=== PATIENT | female | born 1995 | race African-American/Black ===

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

== ENCOUNTER 2017-10-16 18:52 | Emergency (ER) | payer OTHER ==
[2017-10-16 19:04] VITALS: BP 129/55; PULSE 62; TEMP 98.2; BMI 29.2
--- NOTE | 2017-10-16 19:05 | PDOC ---
Rapid Medical Evaluation Chief Complaint: Pain Time Seen by Provider: 10/16/17 19:03 Medical Evaluation: Allergies Allergy/AdvReac Type Severity Reaction Status Date / Time No Known Allergies Allergy Verified 12/24/16 10:07 10/16/17 19:03 I have performed a brief in-person evaluation of this patient. The patient presents with a chief complaint of: cramping x 1 day, no control, currently menstruating Pertinent physical exam findings: uncomfortable appearing I have ordered the following: ua, ucx, upreg The patient will proceed to the ED for further evaluation. Discharge Disposition - Diagnosis Abdominal cramping - Referrals - Patient Instructions - Post Discharge Activity
[2017-10-16] MEDS ORDERED: KETOROLAC TROMETHAMINE 30 MG/1 ML VIAL IM ONE (20:07)
--- NOTE | 2017-10-16 20:14 | PDOC ---
History of Present Illness - General Chief Complaint: Pain Stated Complaint: Menstrual pain Time Seen by Provider: 10/16/17 19:03 History Source: Patient - History of Present Illness Timing/Duration: reports: constant Abdominal Pain Onset Location: reports: generalized abdomen Past History - Past Medical History Allergies/Adverse Reactions: Allergies Allergy/AdvReac Type Severity Reaction Status Date / Time No Known Allergies Allergy Verified 10/16/17 19:04 Home Medications: Ambulatory Orders NK [No Known Home Medication] 12/24/16 COPD: No Disorders: Yes (R ovarian cysts) - Suicide/Smoking/Psychosocial Hx Smoking History: Never smoked Have you smoked in the past 12 months: No Information on smoking cessation initiated: No Hx Alcohol Use: No Drug/Substance Use Hx: No Substance Use Type: None Review of Systems - Review of Systems Constitutional: No: Chills, Fever ABD/GI: Yes: Nausea, Abdominal cramping : No: Dysuria *Physical Exam - Vital Signs Last Vital Signs Temp Pulse Resp BP Pulse Ox 98.2 F 62 19 129/55 98 10/16/17 19:02 10/16/17 19:02 10/16/17 19:02 10/16/17 19:02 10/16/17 19:02 - Physical Exam General Appearance: Yes: Appropriately Dressed. No: Apparent Distress HEENT: positive: Normal Voice Neck: positive: Supple Respiratory/Chest: negative: Respiratory Distress Gastrointestinal/Abdominal: positive: Soft. negative: Tender Integumentary: positive: Dry, Warm Neurologic: positive: Fully Oriented, Alert, Normal Mood/Affect Medical Decision Making - Medical Decision Making 10/16/17 20:09 22-year-old female, history of chlamydia in eighth grade, possible ovarian cyst , dysmenorrhea, here with abdominal cramping in the setting of menses which started today. Patient states pain consistent with her usual dysmenorrhea. Also has intermittent nausea and dizziness which she usually has at onset of menses. Taking Tylenol with no relief. No abnormal vaginal discharge, nausea, vomiting, fever or chills. Of note, patient had ultrasound last year at [facility] which did not show any cysts or fibroids. See exam Dysmenorrhea Preg and ua neg -toradol in ED -dc w/ otc meds and care companion f/u 10/16/17 20:46 Pain better w/ meds, upreg neg, ua w/ no e/o infxn. Stable for dc w/ motrin prn and care companion f/u 10/16/17 20:47 *DC/Admit/Observation/Transfer Diagnosis at time of Disposition: Dysmenorrhea - Discharge Dispostion Disposition: HOME Condition at time of disposition: Improved - Referrals Referrals: Sandie Rasmussen MD [Primary Care Provider] - - Patient Instructions Printed Discharge Instructions: DI for Dysmenorrhea Additional Instructions: Take 800 mg of Motrin every 6 hours for pain. Please take medication with food to prevent gastritis. Please follow-up with your TIMBER CUTTER in 1-2 weeks - Post Discharge Activity
[2017-10-16] MEDS ORDERED: KETOROLAC TROMETHAMINE 30 MG/1 ML VIAL ONE (20:16)
[2017-10-16 20:33] LABS: URINE APPEARANCE SLCLOUDY; URINE BILIRUBIN NEGATIVE (<2.0 mg/dL); URINE BLOOD 3+ (NEGATIVE); URINE COLOR DKYELLOW; URINE GLUCOSE (UA) NEGATIVE (NEGATIVE); URINE KETONE 2+ (NEGATIVE); URINE LEUK ESTERASE NEGATIVE (NEGATIVE); URINE NITRITE NEGATIVE (NEGATIVE); URINE UROBILINOGEN NEGATIVE mg/dL (0.2-1.0)
[2017-10-16 20:36] LABS: URINE PROTEIN 2+ (NEGATIVE)
[2017-10-16 20:38] LABS: EPI CELLS RARE /HPF (FEW); URINE BACTERIA FEW /hpf (NONE SEEN); URINE MUCUS MANY
[2017-10-16 20:40] LABS: HCG,QUALITATIVE URINE NEGATIVE
== END 2017-10-16 20:56 | disposition home or self-care (01) ==
LOC: JERFT 18:52
PROC: 3E0233Z Introduction of Anti-inflammatory into Muscle, Percutaneous Approach (ICD-10-PCS; principal; 2017-10-16)
DX: N94.6 Dysmenorrhea, unspecified (principal); N83.201 Unspecified ovarian cyst, right side
CPT/HCPCS: 81003; 81015; 84703; 87086; 96372; 99281-25

== ENCOUNTER 2018-09-11 08:18 | Emergency (ER) | payer OTHER ==
[2018-09-11 08:31] VITALS: TEMP 97.7; BMI 28.1
[2018-09-11] MEDS ORDERED: morphine CARPU-JECT 4 MG/1 ML DISP.SYRIN IVPUSH ONE (08:57)
[2018-09-11] MEDS ORDERED: SODIUM CHLORIDE 1,000 ML IV STA (08:57)
[2018-09-11] MEDS ORDERED: ONDANSETRON 4 MG/2 ML VIAL IVPUSH ONE (08:57)
--- NOTE | 2018-09-11 08:57 | PDOC ---
History of Present Illness - General History Source: Patient Exam Limitations: No Limitations - History of Present Illness Initial Comments: 09/11/18 09:41 The patient is a 22 year old female with a past medical history of endometriosis here today for evaluation of abdominal pain. The patient reports that she usually has dysmenorrhea on the first and second day of her period and that her period started last yesterday. Patient has been seen by her OB but refuses treatment due to concerns about fertility. Patient denies headache, lightheadedness. Denies fever, chills. Denies chest pain, shortness of breath. Denies nausea, vomiting, diarrhea. Allergies: NKA <Nrei Mcnally - Last Filed: 09/11/18 09:40> <Dinora Arias - Last Filed: 09/11/18 15:29> - General Chief Complaint: Pain Stated Complaint: CRAMPS Time Seen by Provider: 09/11/18 08:57 Past History <Neri Mcnally - Last Filed: 09/11/18 09:40> - Past Medical History COPD: No Disorders: Yes (R ovarian cysts) - Suicide/Smoking/Psychosocial Hx Smoking History: Unknown if ever smoked Have you smoked in the past 12 months: No Hx Alcohol Use: No Drug/Substance Use Hx: No Substance Use Type: None <Dinora Arias - Last Filed: 09/11/18 15:29> - Past Medical History Allergies/Adverse Reactions: Allergies Allergy/AdvReac Type Severity Reaction Status Date / Time morphine Allergy Verified 09/11/18 13:29 shellfish derived Allergy Verified 09/11/18 13:30 Home Medications: Ambulatory Orders Loratadine [Claritin] 10 mg PO BID PRN #20 tablet 09/11/18 Methylprednisolone [Medrol Dose Chip] 4 mg PO ASDIR #21 tablet 09/11/18 Ranitidine [Zantac -] 150 mg PO DAILY #7 tablet 09/11/18 Review of Systems - Review of Systems Able to Perform ROS?: Yes Comments:: 09/11/18 09:41 GENERAL/CONSTITUTIONAL: No fever or chills. No weakness. HEAD, EYES, EARS, NOSE AND THROAT: No change in vision. No ear pain or discharge. No sore throat. CARDIOVASCULAR: No chest pain or shortness of breath. RESPIRATORY: No cough, wheezing, or hemoptysis. GASTROINTESTINAL: +lower abdominal pain. No nausea, vomiting, diarrhea or constipation. GENITOURINARY: No dysuria, frequency, or change in urination. MUSCULOSKELETAL: No joint or muscle swelling or pain. No neck or back pain. SKIN: No rash NEUROLOGIC: No headache, vertigo, loss of consciousness, or change in strength/ sensation. ENDOCRINE: No increased thirst. No abnormal weight change. HEMATOLOGIC/LYMPHATIC: No anemia, easy bleeding, or history of blood clots. ALLERGIC/IMMUNOLOGIC: No hives or skin allergy. <Neri Mcnally - Last Filed: 09/11/18 09:40> *Physical Exam - Vital Signs Last Vital Signs Temp Pulse Resp BP Pulse Ox 97.7 F 55 L 22 H 96/66 99 09/11/18 08:30 09/11/18 08:30 09/11/18 08:30 09/11/18 08:30 09/11/18 08:30 - Physical Exam Comments: 09/11/18 09:41 GENERAL: The patient is in no acute distress. HEAD: Normal with no signs of trauma. EYES: PERRLA, EOMI, sclera anicteric, conjunctiva clear. ENT: Ears normal, nares patent, oropharynx clear without exudates. Moist mucous membranes. NECK: Normal range of motion, supple without lymphadenopathy, JVD, or masses. LUNGS: Breath sounds equal, clear to auscultation bilaterally. No wheezes, and no crackles. HEART:Regular rate and rhythm, normal S1 and S2 without murmur, rub or gallop. ABDOMEN: Soft, nontender, normoactive bowel sounds. No guarding, no rebound. No masses palpable. EXTREMITIES: Normal range of motion, no edema. No clubbing or cyanosis. No erythema, or tenderness. NEUROLOGICAL: Cranial nerves II through XII grossly intact. Normal speech. No focal neurological deficits. MUSCULOSKELETAL: Back non-tender to palpation, no CVA tenderness SKIN: Warm, Dry, normal turgor, no rashes or lesions noted. <Neri Mcnally - Last Filed: 09/11/18 09:40> - Vital Signs Last Vital Signs Temp Pulse Resp BP Pulse Ox 97.7 F 55 L 22 H 96/66 99 09/11/18 08:30 09/11/18 08:30 09/11/18 08:30 09/11/18 08:30 09/11/18 08:30 <Dinora Arias - Last Filed: 09/11/18 15:29> Moderate Sedation - Procedure Monitoring Vital Signs: Procedure Monitoring Vital Signs Temperature 97.7 F 09/11/18 08:30 Pulse Rate 55 L 09/11/18 08:30 Respiratory Rate 22 H 09/11/18 08:30 Blood Pressure 96/66 09/11/18 08:30 O2 Sat by Pulse Oximetry (%) 99 09/11/18 08:30 <Neri Mcnally - Last Filed: 09/11/18 09:40> - Procedure Monitoring Vital Signs: Procedure Monitoring Vital Signs Temperature 97.7 F 09/11/18 08:30 Pulse Rate 55 L 09/11/18 08:30 Respiratory Rate 22 H 09/11/18 08:30 Blood Pressure 96/66 09/11/18 08:30 O2 Sat by Pulse Oximetry (%) 99 09/11/18 08:30 <Dinora Arias - Last Filed: 09/11/18 15:29> ED Treatment Course - LABORATORY CBC & Chemistry Diagram: 09/11/18 10:27 09/11/18 10:27 <Dinora Arias - Last Filed: 09/11/18 15:29> Medical Decision Making - Medical Decision Making 09/11/18 09:02 Ms Hernandez is a 22 yo F who presents with abdominal pain Pt reports that she has a h/o dysmenorrhea on the 1st and 2nd days of her period She has previously been seen by her field artillery crewmember who told her that she should be started on OCPs Pt refused this because she is concerned about her future fertility Pt states she is usually in pain on the 1st and 2nd day of her period It started last night Will do: Labs IVF Zofran, Morphine TVUS 09/11/18 11:20 Laboratory Tests 09/11/18 09/11/18 10:27 10:27 WBC 5.0 Hgb 12.9 Hct 37.4 Plt Count 207 Serum , Qual Negative 09/11/18 11:20 US pending Pt states she feels better 09/11/18 13:19 Pt received Morphine 4 Pt developed reaction (urticaria on left middle nuckle and right hand) No wheezing No nausea or vomiting No uvula edema Benadryl given Solumedro 09/11/18 14:52 Pt re assessed Pt states she feels better Will discharge to home Will give treatment for allergic reaction Pt can only take nsaids for her abdominal pain <Dinora Arias - Last Filed: 09/11/18 15:29> *DC/Admit/Observation/Transfer - Attestations Scribe Attestion: 09/11/18 09:41 Documentation prepared by PHILL Ryan, acting as clinical medical transcriptionist for Dinora Arias MD. <Neri Mcnally - Last Filed: 09/11/18 09:40> - Discharge Dispostion Decision to Admit order: No <Dinora Arias - Last Filed: 09/11/18 15:29> Diagnosis at time of Disposition: Dysmenorrhea, Endometriosis - Discharge Dispostion Disposition: HOME Condition at time of disposition: Stable - Prescriptions Prescriptions: Loratadine [Claritin] 10 mg PO BID PRN #20 tablet PRN Reason: allergic reaction Methylprednisolone [Medrol Dose Chip] 4 mg PO ASDIR #21 tablet Ranitidine [Zantac -] 150 mg PO DAILY #7 tablet - Referrals Referrals: Yfn Pastrana MD [Primary Care Provider] - - Patient Instructions Printed Discharge Instructions: Dysmenorrhea (Alternative Therapy), Painful Menstrual Periods, DI for Dysmenorrhea Additional Instructions: You MUST follow up with your field artillery crewmember Consider Oral contraceptives for treatment Please take Motrin or Pamprin for cramps (start taking this as soon as you start to have cramps) Please return to the ER for any other concerns or complaints - Post Discharge Activity Forms/Work/School Notes: Back to Work
[2018-09-11] MEDS ORDERED: ONDANSETRON 4 MG/2 ML VIAL ONE (10:13)
[2018-09-11] MEDS ORDERED: morphine SULFATE 4 MG/ML VIAL ONE (10:13)
[2018-09-11 10:42] LABS: BASO % 0.5 % (0-2.0); EOS % 0.2 % (0-4.5); HEMATOCRIT 37.4 % (32.4-45.2); HEMOGLOBIN 12.9 GM/dL (10.7-15.3); MCH 32.6 pg (25.7-33.7); MCHC 34.6 g/dl (32.0-36.0); MEAN CELL VOLUME 94.3 fl (80-96); MEAN PLT VOLUME 10.1 fl (7.5-11.1); MONO % 3.6 % (3.8-10.2); NEUT % 84.7 % (42.8-82.8); PLATELET COUNT 207 K/MM3 (134-434); RBC 3.96 M/mm3 (3.60-5.2); RDW 13.6 % (11.6-15.6)
[2018-09-11] MEDS ORDERED: methylPREDNISolone NA SUCC 125 MG/2 ML VIAL IVPUSH ONE (13:20)
[2018-09-11] MEDS ORDERED: FAMOTIDINE 20 MG/50 ML IVPB 20 MG/50 ML MG IVPB ONE ×2 (13:21→13:35)
[2018-09-11] MEDS ORDERED: methylPREDNISolone NA SUCC 125 MG/2 ML VIAL ONE (13:35)
[2018-09-11 15:35] VITALS: BP 103/46; PULSE 52
[2018-09-11 16:08] LABS: ALBUMIN 4.3 g/dl (3.4-5.0); ALK PHOS 76 U/L (45-117); ANION GAP 8 MMOL/L (8-16); BILIRUBIN,TOTAL 0.6 mg/dL (0.2-1); BLOOD UREA NITROGEN 10 mg/dL (7-18); CALCIUM 8.9 mg/dL (8.5-10.1); CHLORIDE 110 mmol/L (98-107); CO2 23 mmol/L (21-32); CREATININE 0.7 mg/dL (0.55-1.3); GLUCOSE,RANDOM 103 mg/dL (74-106); POTASSIUM 3.7 mmol/L (3.5-5.1); SGOT/AST 11 U/L (15-37); SGPT/ALT 22 U/L (13-61); SODIUM 140 mmol/L (136-145); TOT PROT 7.2 g/dl (6.4-8.2)
== END 2018-09-11 15:34 | disposition home or self-care (01) ==
LOC: JER 08:18
PROC: 3E033GC Introduction of Other Therapeutic Substance into Peripheral Vein, Percutaneous Approach (ICD-10-PCS; principal; 2018-09-11)
PROC: 3E033NZ Introduction of Analgesics, Hypnotics, Sedatives into Peripheral Vein, Percutaneous Approach (ICD-10-PCS; 2018-09-11)
PROC: 3E033GC Introduction of Other Therapeutic Substance into Peripheral Vein, Percutaneous Approach (ICD-10-PCS; 2018-09-11)
PROC: 3E0337Z Introduction of Electrolytic and Water Balance Substance into Peripheral Vein, Percutaneous Approach (ICD-10-PCS; 2018-09-11)
DX: N94.6 Dysmenorrhea, unspecified (principal); N80.9 Endometriosis, unspecified
CPT/HCPCS: 36415; 76830-TC; 80053; 84703; 85025; 96361; 96365; 96375; 99285-25; J7030

== ENCOUNTER 2019-04-18 09:41 | Inpatient (IN) | payer OTHER ==
--- NOTE | 2019-04-18 10:54 | PDOC ---
History of Present Illness - General Chief Complaint: Pain Stated Complaint: ABDOMINAL PAIN Time Seen by Provider: 04/18/19 10:52 History Source: Patient Exam Limitations: No Limitations - History of Present Illness Initial Comments: 04/18/19 10:53 HPI: 23yo F with PMH endometriosis p/w diffuse abdominal pain for 3 days with associated nausea and vomiting. Pain is throbbing / soreness / stabbing and does not radiate. Reports pain is in lower abdomen but points to umbilicus / epigastrium. No radiation, gradually worsening intensity - unable to stand upright 2/2 pain. Pt reports that she usually has dysmenorrhea on the first and second day of her period. LMP was 04/08-04/14 then restarted 04/16-04/18. Pt has been seen by her OB but refuses treatment due to concerns about fertility. She denies ever being told she has a polyp, fibroid, or cyst. Denies Hx of STI. No urinary symptoms, no diarrhea or constipation. Endorses vomiting "all day yesterday" and three times today. Reports she would have an appetite if she wasn 't nauseous. Patient denies headache, lightheadedness, fever, chills, chest pain, shortness of breath. All: PCN > rash Meds: denies PMH: denies PSH: denies FHx: DM Past History - Travel Traveled outside of the country in the last 30 days: No Close contact w/someone who was outside of country & ill: No - Past Medical History Allergies/Adverse Reactions: Allergies Allergy/AdvReac Type Severity Reaction Status Date / Time morphine Allergy Verified 04/18/19 11:09 shellfish derived Allergy Verified 04/18/19 11:09 Home Medications: Ambulatory Orders Loratadine [Claritin] 10 mg PO BID PRN #20 tablet 09/11/18 Methylprednisolone [Medrol Dose Chip] 4 mg PO ASDIR #21 tablet 09/11/18 Ranitidine [Zantac -] 150 mg PO DAILY #7 tablet 09/11/18 COPD: No Disorders: Yes (R ovarian cysts) - Immunization History Immunization Up to Date: Yes - Psycho Social/Smoking Cessation Hx Smoking History: Unknown if ever smoked Have you smoked in the past 12 months: No Hx Alcohol Use: No Drug/Substance Use Hx: No Substance Use Type: None Review of Systems - Review of Systems Able to Perform ROS?: Yes Is the patient limited Korean proficient: Yes Constitutional: No: Chills, Diaphoresis, Fever, Night Sweats, Weakness HEENTM: No: Blurred Vision, Double Vision, Nose Congestion, Tinnitus, Throat Pain Respiratory: No: Cough, Orthopnea, Shortness of Breath, Wheezing Cardiac (ROS): No: Chest Pain, Edema, Irregular Heart Rate, Palpitations, Syncope, Chest Tightness ABD/GI: Yes: Nausea, Vomiting. No: Abdominal Distended, Constipated, Diarrhea : No: Burning, Dysuria, Discharge, Frequency, Pain Musculoskeletal: No: Back Pain, Joint Pain, Neck Pain Integumentary: No: Bruising, Pruritus, Rash Neurological: No: Headache, Numbness, Tingling, Weakness Psychiatric: No: Stressors, Emotional Problems, Mood Swings, Change in Appetite Hematologic/Lymphatic: No: Anemia, Easy Bleeding, Easy Bruising All Other Systems: Reviewed and Negative *Physical Exam - Physical Exam Comments: 04/18/19 12:58 Vitals reviewed, AFVSS WDWN woman, no acute distress, laying in hospital bed NCAT, EOMI, MMM, normal morphologies RRR, nl s1/s2, no murmurs CTABL, normal WOB, no wheezes / rales / rhonchi Soft, diffusely tender throughout, guarding and grabbing examining hand, no rebound, tender at costal margin as much as rest of abdomen, nondistended, no scars, jaundice, or rash WWP, no clubbing / cyanosis / edema Alert and oriented ED Treatment Course - LABORATORY CBC & Chemistry Diagram: 04/18/19 11:55 04/18/19 11:55 Medical Decision Making - Medical Decision Making 04/18/19 11:23 23yo F with PMH endometriosis p/w progressive, nonradiating, diffuse achy abdominal pain for 3 days with associated nausea and vomiting. DDX: Viral syndrome, dysmenorrhea, r/o ectopic, UTI. -CBC, CMP, T&S, Lipase -UA, UPreg -1L IVF -Zofran -TVUS 04/18/19 14:00 -WBC 11.1, normal electrolytes, normal LFTs, normal lipase -1g IV Tylenol ordered 04/18/19 14:55 -TVUS unable to visualize the R ovary, multiple cysts on L ovary, no free fluid -CTAP with contrast ordered -Urine studies pending -30mg Toradol and 2mg Morphine ordered 04/18/19 17:35 -Patient has been doing well with pain, taken to CT -Urine Preg has resulted, pending UA and CT 04/18/19 18:25 -CT without R adnexal pathology, ovary not explicitly identified -Repeat TVUS, dispo 04/18/19 18:32 -Patient amenable to repeating TVUS, reports that she had them stop the prior exam 2/2 pain -Pain remains controlled -UA still pending Discharge - Discharge Information Problems reviewed: Yes Clinical Impression/Diagnosis: Right lower quadrant abdominal pain Condition: Stable - Follow up/Referral Referrals: Jean Arteaga MD [Primary Care Provider] - - Patient Discharge Instructions - Post Discharge Activity
[2019-04-18 11:09] VITALS: BMI 28.1
[2019-04-18] MEDS ORDERED: SODIUM CHLORIDE 1,000 ML IV STA (11:12)
[2019-04-18] MEDS ORDERED: ONDANSETRON 4 MG/2 ML VIAL IVPUSH ONE (11:12)
[2019-04-18 12:11] LABS: BASO % 0.3 % (0-2.0); EOS % 0.1 % (0-4.5); HEMATOCRIT 37.1 % (32.4-45.2); HEMOGLOBIN 12.3 GM/dL (10.7-15.3); MCHC 33.2 g/dl (32.0-36.0); MEAN CELL VOLUME 93.2 fl (80-96); MEAN PLT VOLUME 9.9 fl (7.5-11.1); NEUT % 86.6 % (42.8-82.8); PLATELET COUNT 199 K/MM3 (134-434); RBC 3.98 M/mm3 (3.60-5.2); RDW 13.3 % (11.6-15.6); WHITE BLOOD COUNT 11.1 K/mm3 (4.0-10.0)
[2019-04-18 12:38] LABS: ALBUMIN 3.9 g/dl (3.4-5.0); BILIRUBIN,TOTAL 1.3 mg/dL (0.2-1); BLOOD UREA NITROGEN 6.8 mg/dL (7-18); CALCIUM 9.1 mg/dL (8.5-10.1); CREATININE 0.7 mg/dL (0.55-1.3); MAGNESIUM 1.9 mg/dL (1.8-2.4); PHOSPHOROUS 2.5 mg/dL (2.5-4.9); POTASSIUM 3.7 mmol/L (3.5-5.1); TOT PROT 6.7 g/dl (6.4-8.2)
[2019-04-18] MEDS ORDERED: ACETAMINOPHEN 1000 MG/100 ML VIAL (NON FORMULARY) IVPB ONE (13:37)
[2019-04-18] MEDS ORDERED: KETOROLAC TROMETHAMINE 30 MG/1 ML VIAL IVPUSH ONE ×2 (14:05→19:17)
[2019-04-18] MEDS ORDERED: morphine CARPU-JECT 4 MG/1 ML DISP.SYRIN IVPUSH ONE (14:09)
[2019-04-18] MEDS ORDERED: KETOROLAC TROMETHAMINE 30 MG/1 ML VIAL ONE ×2 (14:22→19:20)
--- NOTE | 2019-04-18 14:29 | PDOC ---
Documentation entered by Monse Burleson SCRIBE, acting as scribe for Wally Tavera MD. Wally Tavera MD: This documentation has been prepared by the Sarah Beth ernst Adrianna, SCRIBE, under my direction and personally reviewed by me in its entirety. I confirm that the documentation accurately reflects all work, treatment, procedures, and medical decision making performed by me. Attending Attestation - Resident Resident Name: Jarad Christie - ED Attending Attestation I have performed the following: I have examined & evaluated the patient, The case was reviewed & discussed with the resident, I agree w/resident's findings & plan, Exceptions are as noted - HPI HPI: The patient is a 23 year old female, with a significant PMH of ?endometriosis ( not formally diagnosed by obgyn), who presents to the ED for evaluation of abdominal pain for 3 days. Patient complains of diffuse abdominal pain that is constant, throbbing and stabbing in nature (more right-sided abdominal pain than left). Her pain is exacerbated by standing straight up and taking a deep breath, and is alleviated with hunching over. She endorses associated nausea, vomit, dysuria (says her urine smells like ammonia), and diarrhea. Patient notes her LMP ended 4 days ago, but returned 2 days ago (she is currently menstruating). Allergies: Morphine, penicillins, shellfish Surgical History: None reported Social History: Denies EtOH, tobacco, or illicit drug use PCP: Dr. Arteaga - Physicial Exam PE: 04/18/19 14:25 GENERAL: The patient is awake, alert, and fully oriented, appears to be in pain ABDOMEN: mil ddiffuse ttp >RLQ, no cva tenderness EXTREMITIES: Normal range of motion, no edema. NEUROLOGICAL: No facial assymetry, Normal speech, - Medical Decision Making 04/18/19 14:27 23y F presenting with worsening abd pain that is sharp, worse in the RLQ associated with vomiteing. on exam pt with mild diffuse tendeness, apperas to be in pin ddx - torsion, kdiny stone, appendicitis, endometriosis (pt states this was told to her in an emergency department, but she has never been formally dx by obgyn) US reviewed, R ovay no visualized CT pending pt given analgesia debo reassess 04/18/19 16:27 case signed ou tto evening team - if CT is neg, will obtain repeat US to visualize R ovary to ro torsion
[2019-04-18] MEDS ORDERED: ACETAMINOPHEN INJECTION 100 ML IVPB ONE (14:34)
[2019-04-18 17:04] LABS: HCG,QUALITATIVE URINE Negative
[2019-04-18 17:39] LABS: URINE APPEARANCE CLEAR; URINE BILIRUBIN NEGATIVE (NEGATIVE); URINE COLOR YELLOW; URINE GLUCOSE (UA) NEGATIVE (NEGATIVE); URINE KETONE 80 (NEGATIVE)
[2019-04-18 17:40] LABS: EPI CELLS 2.5 /HPF (0-5/HPF); HYALINE CASTS 23.84 /lpf (0-8); PH,URINE 6.5 (5.0-8.0); URINE BACTERIA 165.3 /hpf (NEGATIVE); URINE LEUK ESTERASE TRACE (NEGATIVE); URINE NITRITE NEGATIVE (NEGATIVE); URINE PROTEIN TRACE (NEGATIVE); URINE RBC 2.1 /hpf (0-4); URINE WBC 44.4 /hpf (0-5)
--- NOTE | 2019-04-18 19:18 | PDOC ---
*Physical Exam - Vital Signs Last Vital Signs Temp Pulse Resp BP Pulse Ox 98 F 90 16 120/70 100 04/18/19 09:45 04/18/19 09:45 04/18/19 09:45 04/18/19 09:45 04/18/19 09:45 ED Treatment Course - LABORATORY CBC & Chemistry Diagram: 04/19/19 07:15 04/19/19 07:15 - ADDITIONAL ORDERS Additional order review: Laboratory Results 04/18/19 04/18/19 04/18/19 16:10 11:55 11:55 Sodium 140 Potassium 3.7 Chloride 108 H Carbon Dioxide 26 Anion Gap 7 L BUN 6.8 L Creatinine 0.7 Est GFR (CKD-EPI)AfAm 143.54 Est GFR (CKD-EPI)NonAf 123.85 Random Glucose 92 Calcium 9.1 Phosphorus 2.5 Magnesium 1.9 Total Bilirubin 1.3 H AST 18 ALT 33 Alkaline Phosphatase 68 Total Protein 6.7 Albumin 3.9 Lipase 51 L Urine Color Yellow Urine Appearance Clear Urine pH 6.5 D Ur Specific [place] 1.035 Urine Protein Trace Urine Glucose (UA) Negative Urine Ketones 80 Urine Blood Large Urine Nitrite Negative Urine Bilirubin Negative Urine Urobilinogen 1.0 Ur Leukocyte Esterase Trace Urine WBC (Auto) 44.4 Urine RBC (Auto) 2.1 Urine Casts (Auto) 23.84 U Epithel Cells (Auto) 2.5 Urine Bacteria (Auto) 165.3 Urine HCG, Qual Negative Blood Type O POSITIVE Antibody Screen Negative 04/18/19 11:55 RBC 3.98 MCV 93.2 MCHC 33.2 RDW 13.3 MPV 9.9 Neutrophils % 86.6 H Lymphocytes % 9.0 Monocytes % 4.0 Eosinophils % 0.1 Basophils % 0.3 - Medications Given in the ED: ED Medications Discontinued Medications Generic Name Dose Route Start Last Admin Trade Name Freq PRN Reason Stop Dose Admin Acetaminophen 1,000 mg 04/18/19 13:37 04/18/19 14:43 Ofirmev Injection - IVPB 04/18/19 13:38 1,000 mg ONCE ONE Administration Sodium Chloride 1,000 mls @ 1,000 mls/hr 04/18/19 11:12 04/18/19 12:12 Normal Saline - IV 04/18/19 12:11 1,000 mls/hr ASDIR STA Administration Ketorolac Tromethamine 30 mg 10/11/19 14:05 04/18/19 14:30 Toradol Injection - IVPUSH 04/18/19 14:06 30 mg ONCE ONE Administration Morphine Sulfate 2 mg 04/18/19 14:09 04/18/19 16:17 Morphine Injection - IVPUSH 04/18/19 14:10 Not Given ONCE ONE Ondansetron HCl 4 mg 04/18/19 11:12 04/18/19 12:13 Zofran Injection IVPUSH 04/18/19 11:13 4 mg NOW ONE Administration Medical Decision Making - Medical Decision Making 04/18/19 19:[address] Christie. Patient seen to have mild UTI, will treat with oral abx. Will f/u repeat TVUS, provide more pain medication. 04/18/19 20:14 Spoke with patient's mother. Confirms that patient has been informed that she likely has endometriosis and she has been refusing to pursue any treatment options. Confirmed with patient that her allergy is to penicillin, not morphine. Will give 4mg morphine. 04/18/19 21:13 Repeat TVUS without acute abnormality of R ovary. Discharge - Discharge Information Problems reviewed: Yes Clinical Impression/Diagnosis: Right lower quadrant abdominal pain Condition: Stable Disposition: AGAINST MEDICAL ADVICE - Follow up/Referral - Patient Discharge Instructions - Post Discharge Activity
[2019-04-18] MEDS ORDERED: morphine SULFATE 4 MG/ML VIAL ONE (20:11)
[2019-04-18] MEDS ORDERED: NITROFURANTOIN MACROCRYSTAL 50 MG CAPSULE (FP) PO SCH (20:15)
[2019-04-18] MEDS ORDERED: NITROFURANTOIN MACROCRYSTAL 50 MG CAPSULE (FP) ONE (23:35)
[2019-04-19] MEDS ORDERED: ONDANSETRON 4 MG/2 ML VIAL IVPUSH ONE (00:04)
[2019-04-19] MEDS ORDERED: morphine CARPU-JECT 4 MG/1 ML DISP.SYRIN IVPUSH ONE (00:05)
--- NOTE | 2019-04-19 00:20 | HP ---
<Ranjit De Oliveira - Last Filed: 04/19/19 04:21> CHIEF COMPLAINT: abdominal pain PCP: Dr. Jean Arteaga HISTORY OF PRESENT ILLNESS: 23 year old female with a past medical history of endometriosis presents to the hospital with several days of diffuse abdominal pain with nausea and multiple episodes of non-bloody/non-bilious vomiting over the past 2 days. Reports that the pain radiates to her back bilaterally when she palpates her abdomen. States that she occasionally has abdominal pains and cramps but never to this degree in the past. States that nothing she did was able to alleviate the pain prior to arrival to the ED. States that she had an elective surgical ~ 4 weeks ago, but does not remember the name of the doctor she went to see. Last menstrual period ended 2-3 days ago and was normal in consistency. Denies chest pains, shortness of breath, diarrhea, fevers, chills, dysuria. Patient reports much improved after she got morphine in the ED. ER course was notable for: (1) mild leukocytosis (2) mildly elevated T bili 1.3 (3) Recent Travel: denies recent travel PAST MEDICAL HISTORY: endometriosis PAST SURGICAL HISTORY: surgical 4 weeks ago Family History: no family hx of cancer, heart disease; DM present in grandparents Social History: Smoking: never Alcohol: never Drugs: never Allergies Penicillins Allergy (Verified 04/18/19 20:16) shellfish derived Allergy (Verified 04/18/19 11:09) HOME MEDICATIONS: Home Medications Medication Instructions Recorded Loratadine [Claritin] 10 mg PO BID PRN #20 tablet 09/11/18 Methylprednisolone [Medrol Dose 4 mg PO ASDIR #21 tablet 09/11/18 Chip] Ranitidine [Zantac -] 150 mg PO DAILY #7 tablet 09/11/18 REVIEW OF SYSTEMS CONSTITUTIONAL: Absent: fever, chills, diaphoresis, generalized weakness, malaise, loss of appetite, weight change HEENT: Absent: rhinorrhea, nasal congestion, throat pain, throat swelling, difficulty swallowing, mouth swelling, ear pain, eye pain, visual changes CARDIOVASCULAR: Absent: chest pain, syncope, palpitations, irregular heart rate, lightheadedness , peripheral edema RESPIRATORY: Absent: cough, shortness of breath, dyspnea with exertion, orthopnea, wheezing, stridor, hemoptysis GASTROINTESTINAL: abdominal pain Absent:abdominal distension, nausea, vomiting, diarrhea, constipation, melena, hematochezia GENITOURINARY: Absent: dysuria, frequency, urgency, hesitancy, hematuria, flank pain, genital pain MUSCULOSKELETAL: Absent: myalgia, arthralgia, joint swelling, back pain, neck pain SKIN: Absent: rash, itching, pallor HEMATOLOGIC/IMMUNOLOGIC: Absent: easy bleeding, easy bruising, lymphadenopathy, frequent infections ENDOCRINE: Absent: unexplained weight gain, unexplained weight loss, heat intolerance, cold intolerance NEUROLOGIC: Absent: headache, focal weakness or paresthesias, dizziness, unsteady gait, seizure, mental status changes, bladder or bowel incontinence PSYCHIATRIC: Absent: anxiety, depression, suicidal or homicidal ideation, hallucinations. PHYSICAL EXAMINATION Vital Signs - 24 hr 04/18/19 04/18/19 09:45 20:42 Temperature 98 F Pulse Rate 90 Pulse Rate [ 93 H Left Radial] Respiratory 16 16 Rate Blood Pressure 120/70 Blood Pressure 129/94 [Left Arm] O2 Sat by Pulse 100 98 Oximetry (%) GENERAL: A&Ox3, no acute distress EYES: PERRLA, EOMI ENT: Moist mucus membranes NECK: No JVD LUNGS: CTA, no wheezes HEART: RRR, no murmurs ABDOMEN: Soft, diffusely tender to palpation to light and deep palpation, bowel sounds present MUSCULOSKELETAL: No CVA Tenderness EXTREMITIES: 2+ pulses, no edema. NEUROLOGICAL: Cranial nerves II-XII intact. No focal deficits. Laboratory Results - last 24 hr 04/18/19 04/18/19 04/18/19 11:55 11:55 11:55 WBC 11.1 H RBC 3.98 Hgb 12.3 Hct 37.1 MCV 93.2 MCH 31.0 MCHC 33.2 RDW 13.3 Plt Count 199 MPV 9.9 Absolute Neuts (auto) 9.6 H Neutrophils % 86.6 H Lymphocytes % 9.0 Monocytes % 4.0 Eosinophils % 0.1 Basophils % 0.3 Nucleated RBC % 0 Sodium 140 Potassium 3.7 Chloride 108 H Carbon Dioxide 26 Anion Gap 7 L BUN 6.8 L Creatinine 0.7 Est GFR (CKD-EPI)AfAm 143.54 Est GFR (CKD-EPI)NonAf 123.85 Random Glucose 92 Calcium 9.1 Phosphorus 2.5 Magnesium 1.9 Total Bilirubin 1.3 H AST 18 ALT 33 Alkaline Phosphatase 68 Total Protein 6.7 Albumin 3.9 Lipase 51 L Urine Color Urine Appearance Urine pH Ur Specific [place] Urine Protein Urine Glucose (UA) Urine Ketones Urine Blood Urine Nitrite Urine Bilirubin Urine Urobilinogen Ur Leukocyte Esterase Urine WBC (Auto) Urine RBC (Auto) Urine Casts (Auto) U Epithel Cells (Auto) Urine Bacteria (Auto) Urine HCG, Qual Blood Type O POSITIVE Antibody Screen Negative 04/18/19 16:10 WBC RBC Hgb Hct MCV MCH MCHC RDW Plt Count MPV Absolute Neuts (auto) Neutrophils % Lymphocytes % Monocytes % Eosinophils % Basophils % Nucleated RBC % Sodium Potassium Chloride Carbon Dioxide Anion Gap BUN Creatinine Est GFR (CKD-EPI)AfAm Est GFR (CKD-EPI)NonAf Random Glucose Calcium Phosphorus Magnesium Total Bilirubin AST ALT Alkaline Phosphatase Total Protein Albumin Lipase Urine Color Yellow Urine Appearance Clear Urine pH 6.5 D Ur Specific [place] 1.035 Urine Protein Trace Urine Glucose (UA) Negative Urine Ketones 80 Urine Blood Large Urine Nitrite Negative Urine Bilirubin Negative Urine Urobilinogen 1.0 Ur Leukocyte Esterase Trace Urine WBC (Auto) 44.4 Urine RBC (Auto) 2.1 Urine Casts (Auto) 23.84 U Epithel Cells (Auto) 2.5 Urine Bacteria (Auto) 165.3 Urine HCG, Qual Negative Blood Type Antibody Screen ASSESSMENT/PLAN: 23 year old female with a past medical history of endometriosis presents to the hospital with several days of diffuse abdominal pain with nausea and multiple episodes of non-bloody/non-bilious vomiting over the past 2 days. #Abdominal Pain: could be related to endometriosis vs urinary tract infection vs gastritis -CT abdomen pelvis was not revealing for any acute intraabdominal pathology, repeat CT with contrast -transvaginal ultrasound with large and multiple cysts on L ovary, R ovary normal -would need university services program associate consult, Dr. Ford consulted -pain control/ tylenol and ibuprofen, would like to minimize narcotic use -lactated ringers @ 83cc/hr, once diet is more tolerated, can stop -urine cultures -protonix ordered -give a dose of ceftriaxone, wait for urine culture -liquid diet, advance as tolerated #FEN -LR @ 83cc/hr -lytes normal -liquid diet, advance as tolerated #Prophylaxis -SCDs for prophylaxis #Disposition -admit med surg Visit type - Emergency Visit Emergency Visit: Yes ED Registration Date: 04/18/19 Care time: The patient presented to the Emergency Department on the above date and was hospitalized for further evaluation of their emergent condition. - New Patient This patient is new to me today: Yes Date on this admission: 04/19/19 - Critical Care Critical Care patient: No ATTENDING PHYSICIAN STATEMENT I saw and evaluated the patient. I reviewed the resident's note and discussed the case with the resident. I agree with the resident's findings and plan as documented. SUBJECTIVE: OBJECTIVE: ASSESSMENT AND PLAN: <Beltran Najera - Last Filed: 04/20/19 16:55> I have seen and examined the indicated patient along with the resident team. I have personally verified all jama exam findings and historical components. I have personally interpreted all diagnostics indicated per todays orders and reviewed interpretation of indicated subspecialty services. This patient meets a high level of medical complexity and warrants inpatient stay to avoid decompensation and worsening of the indicated illness. S: Agree with historical findings as outlined in resident documentation regarding history of presentillness.10 system ROS completed and is negative aside from indicated issues in the resident/attending history of present illness and full documentation. Presents with intractable abdominal pain after APAP and morphine ; dosage noted. Was told she has endometriosis as an outpatient. Stable. Trace LE with pyuria. Noted polycystic ovary on US, Hemnodynamics stable. Past Medical History and Past Surgical Histories reviewed in depth; per resident note Social history is reviewed; per resident note Complete family history is reviewed with patient and is non-pertinent aside from the indicated issues outlined above. No sudden history of cardiac . O: All vital signs reviewed per ER records and are as per EMR NAD, AAO, Resting in bed NC AT EOMI PERRLA Neck supple, trachea midline, no bisi LN RRR s1/2 Lungs CTAB, w/ sym expansion Diffuse mild tender without rebound ND +BS No skin breakdown or rashes noted CN2-12 wnl, no new focal deficits noted Muscle tone normal, no deficits in motor function or strength noted Normal mood, appropriate behavior, average insightNo new diagnostics noted today. Imaging and diagnostics as ordered personally reviewed. A/P: Patient seen, examined, and discussed in depth with resident team. Problem list reviewed per resident note and agree with their discussion aside from as supplemented by myself below. States she had an a few weeks prior to tis. Problems include: -Intractable abd pain (cystitis vs. endometriosis vs. polycystic ovaries; consult PUBLIC RELATIONS REPRESENTATIVE. PRN APAP and Tylenol. Can give up to 1g QID APAP and 800 TID ibuprofen together. If maxed out on NSAIDs only will consider adding on a secondary agent after discussion with PUBLIC RELATIONS REPRESENTATIVE. If this is felt to be 2/2 cystitis would avoid all narcotics. No guidlines indicate the treatment of cystitis pain with narcotics. Common source referred pain. Consider other ddx items like gastritis. Giving empiric protonix. Liquid diet, advance as tolerated. Consider adding on MTF) -? Cystitis (Empiric 1x ceft given, FU cultures, CBC. Only doing IV to avoid any PO sidee effects with abd due to presentinbg issue) -Overweight -Leukocytosis -PCOS likely ATTENDING PHYSICIAN STATEMENT I saw and evaluated the patient. I reviewed the resident's note and discussed the case with the resident. I agree with the resident's findings and plan as documented. SUBJECTIVE: OBJECTIVE: ASSESSMENT AND PLAN:
[2019-04-19] MEDS ORDERED: LACTATED RINGERS SOLUTION 1,000 ML IV SCH (00:30)
[2019-04-19] MEDS ORDERED: MORPHINE SULFATE 2 MG/ML VIAL ONE (00:40)
[2019-04-19] MEDS ORDERED: ONDANSETRON 4 MG/2 ML VIAL ONE (00:41)
[2019-04-19] MEDS ORDERED: CEFTRIAXONE 1 GM in DEXTROSE 5%-WATER - 50 ML IVPB ONE (02:14)
[2019-04-19] MEDS ORDERED: ACETAMINOPHEN 325 MG TABLET (FP) ONE ×2 (03:20→07:58)
[2019-04-19] MEDS ORDERED: IBUPROFEN 600 MG TABLET (FP) PO ONE (03:21)
[2019-04-19] MEDS ORDERED: CEFTRIAXONE 1 GM/50 ML BAG ONE (03:21)
[2019-04-19] MEDS: ACETAMINOPHEN 325 MG TABLET (FP) PO PRN ×2 (03:42→08:14)
[2019-04-19] MEDS: IBUPROFEN 600 MG TABLET (FP) PO PRN ×2 (03:42→10:38)
[2019-04-19] MEDS ORDERED: PANTOPRAZOLE 40 MG TABLET (FP) PO ONE (04:20)
[2019-04-19] MEDS ORDERED: PANTOPRAZOLE 40 MG TABLET (FP) ONE (05:25)
[2019-04-19 07:46] LABS: HEMATOCRIT 31.5 % (32.4-45.2); HEMOGLOBIN 10.6 GM/dL (10.7-15.3); MCH 31.3 pg (25.7-33.7); MCHC 33.7 g/dl (32.0-36.0); MEAN CELL VOLUME 93.1 fl (80-96); MEAN PLT VOLUME 9.9 fl (7.5-11.1); PLATELET COUNT 163 K/MM3 (134-434); RBC 3.39 M/mm3 (3.60-5.2); RDW 13.2 % (11.6-15.6); WHITE BLOOD COUNT 18.1 K/mm3 (4.0-10.0)
[2019-04-19 08:15] LABS: ALBUMIN 3.4 g/dl (3.4-5.0); BILIRUBIN,DIRECT 0.6 mg/dL (0.0-0.2); BILIRUBIN,TOTAL 1.4 mg/dL (0.2-1); BLOOD UREA NITROGEN 6.8 mg/dL (7-18); CALCIUM 8.7 mg/dL (8.5-10.1); CREATININE 0.8 mg/dL (0.55-1.3); POTASSIUM 3.4 mmol/L (3.5-5.1)
[2019-04-19] MEDS ORDERED: ONDANSETRON 4 MG/2 ML VIAL IVPUSH PRN (09:19)
[2019-04-19] MEDS ORDERED: CEFTRIAXONE 1 GM in DEXTROSE 5%-WATER - 50 ML IVPB SCH (11:00)
[2019-04-19] MEDS ORDERED: DEXTROSE 5%-WATER - 50 ML IVPB ONE (11:01)
[2019-04-19] MEDS ORDERED: cefTRIAXone SODIUM 1 GM VIAL ONE (11:01)
[2019-04-19] MEDS ORDERED: KETOROLAC TROMETHAMINE 15 MG/ML VIAL IVPUSH PRN (11:48)
[2019-04-19] MEDS ORDERED: ACETAMINOPHEN 325 MG TABLET (FP) PO PRN (11:48)
--- NOTE | 2019-04-19 11:57 | PN ---
Progress Note (short form) - Note Progress Note: Pt continues with pain today with some nausea and Nb/NB vomiting. Pt reports had D&C of intrauterine in recent history however in post-procedural period never had any fevers/chills, pain and has been fine until up to 5 days ago. Pt reports she has been told she has endometriosis and this pain still feels severe with more referral to abdomen. Pt endorses dysuria, dyspareunia, denies any fever, urinary incontinence, back pain. Also endorses last BM 3 days ago which is unusual for her, but has not been eating at all due to pain. Vital Signs Temperature 98.8 F 04/19/19 11:05 Pulse Rate 63 04/19/19 11:05 Respiratory Rate 19 04/19/19 11:05 Blood Pressure 128/63 04/19/19 11:05 O2 Sat by Pulse Oximetry (%) 100 04/19/19 11:05 PE: GEN: NAD, awake, alert, oriented x3 Lungs: CTA b/l no wheezes CARD: RRR no murmurs ABD: soft, nondistended normoactive BS, TTP in lower quadrants and RUQ EXT: No edema, pulses normal throughout Skin: No jaundice Active Medications Acetaminophen (Tylenol -) 650 mg PO Q4H PRN PRN Reason: PAIN LEVEL 4 - 6 Lactated Ringer's (Lactated Ringers Solution) 1,000 mls @ 83 mls/hr IV ASDIR [facility] Last Admin: 04/19/19 00:55 Dose: 83 mls/hr Ceftriaxone Sodium 1 gm/ (Dextrose) 50 mls @ 100 mls/hr IVPB DAILY [facility] Last Admin: 04/19/19 11:06 Dose: 100 mls/hr Ketorolac Tromethamine (Toradol Injection -) 15 mg IVPUSH Q6H PRN PRN Reason: PAIN LEVEL 6-10 Stop: 04/24/19 11:47 Nitrofurantoin Macrocrystals (Macrodantin -) 100 mg PO ONCE [facility] Last Admin: 04/18/19 23:50 Dose: 100 mg Ondansetron HCl (Zofran Injection) 4 mg IVPUSH Q6H PRN PRN Reason: NAUSEA AND/OR VOMITING Last Admin: 04/19/19 10:38 Dose: 4 mg PLAN: Same as per note done last night with changes to on-call [employer] provider Dr. Rossi Changed pain scale and control: Tylenol for mild pain Toradol for severe Avoid narcotics as no indication for the use especially with current constipation RUQ U/S to r/o any GB/liver pathology Images reviewed from CAT scans Rest per prior note Discussed with Dr. Reinaldo Jorgensen, DO - IM PGY-3 <Ranjit Jorgensen - Last Filed: 04/19/19 11:52> - Note Progress Note: Seen and examined; agree with resident note besides as supplemented by myself. Confirmed all vital parts of hx and PE personally. Problem list agreed with. Did have an ; no s/s of retained products and none seen on imaging thus far No new complaints but tells me continued pain. She has been told she has endometriosis likely. No bisi dysuria. No hx recurring UTIs All imaging personally reviewed VS, labs, reviewed NAD, AAO, resting in bed Tender; no de leon's, persay, but does wince mroe than normal in Right abd; ND + BS CN2-12 wnl, no fnd Normal mood, appropriate behavior Hemodynamically stable, afebrile A/P: Presents with abdominal pain several weeks after elective ; has been told she has endometriosis and has subacute to chronic abdoinal pain with some acute elements. UA suggestive of infection but asx. Cx pending. Pending OBGYN visit Agree with problem list as above. will check ruq us to r/o gb pathology Full Code 30 mins <Beltran Najera - Last Filed: 04/20/19 16:54>
--- NOTE | 2019-04-19 14:56 | EKG ---
Test Reason : Blood Pressure : / mmHG Vent. Rate : 080 BPM Atrial Rate : 080 BPM P-R Int : 130 ms QRS Dur : 086 ms QT Int : 340 ms P-R-T Axes : 066 017 005 degrees QTc Int : 392 ms NORMAL SINUS RHYTHM WITH SINUS ARRHYTHMIA T WAVE ABNORMALITY, CONSIDER ANTERIOR ISCHEMIA ABNORMAL ECG NO PREVIOUS ECGS AVAILABLE Confirmed by Su Ruiz ([id number]) on 04/19/2019 2:55:47 PM Referred By: Confirmed By:Su Ruiz
[2019-04-19 16:01] VITALS: BP 127/68; PULSE 58; TEMP 98.7
--- NOTE | 2019-04-20 16:44 | DS ---
Physical Exam: After initial encounter paged by nursing regarding mother's wish to speak with physician regarding her daughter's desire to go AMA. Spoke with patient and mother. Her mother and I had a 15 minute conversation regarding the patient's health and her mother verbalized she wanted to have the patient stay. I communicated to nursing and patient's mother after the initial conversation that the patient was of sound mind and had competency to make her own medical decisions. Spoke to neil for protracted conversation when she described her home medical care and how she would just followup OP. She states that she did not vomit at all and was feeling better. Still no OB consult completed but pending. She agreed to wait, then she contacted nursing again. After another 20 minute conversation between parties involved (which involved substantial counseling on my part and of nursing) she decided to leave AMA and submit the paperwork after verbalizing understanding of the risks. PE is unchanged Time spent on DC: 35 minutes Time spent on intial visit: 30 Mins Time spent on additional counseling as dictated: 30 minutes Minutes to complete discharge: 30 Discharge Summary Problems reviewed: Yes Reason For Visit: INTRACTABLE ABDOMINAL PAIN Condition: Stable - Instructions Referrals: Jean Arteaga MD [Primary Care Provider] - Disposition: AGAINST MEDICAL ADVICE - Home Medications Comprehensive Discharge Medication List: Ambulatory Orders Loratadine [Claritin] 10 mg PO BID PRN #20 tablet 09/11/18 Methylprednisolone [Medrol Dose Chip] 4 mg PO ASDIR #21 tablet 09/11/18 Ranitidine [Zantac -] 150 mg PO DAILY #7 tablet 09/11/18 This patient is new to me today: Yes Date on this admission: 04/20/19 Emergency Visit: Yes ED Registration Date: 04/18/19 Care time: The patient presented to the Emergency Department on the above date and was hospitalized for further evaluation of their emergent condition. Critical Care patient: No - Discharge Referral Referred to [facility] No
== END 2019-04-19 17:30 | disposition left against medical advice (07) | DRG 251 ==
LOC: JER 09:41 → JERBED 21:16 → J5S 04-19 10:12
PROVIDERS: ADMIT Internal Medicine; ATTEND Internal Medicine
DX: R10.31 Right lower quadrant pain (principal); N80.9 Endometriosis, unspecified; D72.829 Elevated white blood cell count, unspecified; N83.202 Unspecified ovarian cyst, left side; Z68.28 Body mass index [BMI] 28.0-28.9, adult; R11.2 Nausea with vomiting, unspecified; E66.3 Overweight; N30.90 Cystitis, unspecified without hematuria
CPT/HCPCS: 36415; 74177-TC; 76830-TC; 80053; 81003; 82248; 83615; 83690; 83735; 84100; 84703; 85025; 85027; 86850; 86900; 86901; 87086; 93005; 93010; 99285-25; J0131; J7030; Q9967

== ENCOUNTER 2020-12-23 19:53 | Emergency (ER) | payer OTHER ==
[2020-12-23 20:07] VITALS: BP 104/56; PULSE 76; TEMP 98.7; BMI 24.3
[2020-12-23 22:27] LABS: EPI CELLS 26 /uL (0-25.1); HYALINE CASTS 5 /uL (0-3.1); PH,URINE 5.5 (5.0-8.0); URINE APPEARANCE CLOUDY; URINE BACTERIA 408 /uL (0-1359); URINE BILIRUBIN NEGATIVE (NEGATIVE); URINE COLOR YELLOW; URINE GLUCOSE (UA) NEGATIVE (NEGATIVE); URINE KETONE TRACE (NEGATIVE); URINE LEUK ESTERASE 2+ (NEGATIVE); URINE NITRITE NEGATIVE (NEGATIVE); URINE PROTEIN 1+ (NEGATIVE); URINE WBC 212 /uL (0-25.8)
[2020-12-23] MEDS ORDERED: LIDOCAINE HCL 1%, 10 MG/ML (20ML VIAL) ONE (22:32)
[2020-12-23] MEDS ORDERED: AZITHROMYCIN 500 MG TABLET PO ONE (22:40)
[2020-12-23] MEDS ORDERED: NITROFURANTOIN MACROCRYSTAL 50 MG CAPSULE (FP) PO SCH (22:45)
[2020-12-23 22:49] LABS: HCG,QUALITATIVE URINE Negative
[2020-12-23] MEDS ORDERED: AZITHROMYCIN 500 MG TABLET ONE (22:59)
[2020-12-23] MEDS ORDERED: NITROFURANTOIN MACROCRYSTAL 50 MG CAPSULE (FP) ONE (22:59)
[2020-12-23 23:48] LABS: URINE RBC 58.8 /uL (0-23.9)
== END 2020-12-23 23:21 | disposition home or self-care (01) ==
LOC: JER 19:53
DX: N72 Inflammatory disease of cervix uteri (principal)
CPT/HCPCS: 36415; 81003; 84703; 87491; 87591; 87661; 99284-25

== ENCOUNTER 2021-04-11 15:56 | Emergency (ER) | payer OTHER ==
[2021-04-11 16:22] VITALS: BP 128/71; PULSE 97; TEMP 98.9; BMI 25.0
== END 2021-04-11 18:10 | disposition home or self-care (01) ==
LOC: JERFT 15:56 → JER 15:56 → JERFT 18:10
PROC: 0HBRXZZ Excision of Toe Nail, External Approach (ICD-10-PCS; principal; 2021-04-11)
DX: S91.209A Unspecified open wound of unspecified toe(s) with damage to nail, initial encounter (principal); W22.09XA Striking against other stationary object, initial encounter
CPT/HCPCS: 99282-25

== ENCOUNTER 2022-02-01 16:19 | Emergency (ER) | payer OTHER ==
[2022-02-01 16:56] VITALS: BP 109/59; PULSE 60; RESP 18; TEMP 97.5; BMI 25.8
[2022-02-01 18:14] LABS: EOS % 0.1 % (0-4.5); HEMATOCRIT 41.4 % (32.4-45.2); HEMOGLOBIN 13.9 GM/dL (10.7-15.3); MCHC 33.6 g/dl (32.0-36.0); MEAN CELL VOLUME 92.3 fl (80-96); MEAN PLT VOLUME 9.2 fl (7.5-11.1); NEUT % 81.9 % (42.8-82.8); PLATELET COUNT 228 10^3/uL (134-434); RBC 4.49 M/mm3 (3.60-5.2); RDW 14.1 % (11.6-15.6); WHITE BLOOD COUNT 7.6 K/mm3 (4.0-10.0)
[2022-02-01 18:33] LABS: CHLORIDE 106 mmol/L (98-107); SODIUM 140 mmol/L (136-145)
[2022-02-01 18:35] LABS: CALCIUM 9.5 mg/dL (8.5-10.1)
[2022-02-01 18:36] LABS: ALBUMIN 4.3 g/dl (3.4-5.0); ANION GAP 5 MMOL/L (8-16); CO2 29 mmol/L (21-32); GLUCOSE,RANDOM 88 mg/dL (74-106)
[2022-02-01 18:39] LABS: CREATININE 0.7 mg/dL (0.55-1.3); SGOT/AST 28 U/L (15-37); SGPT/ALT 56 U/L (13-61)
[2022-02-01 18:40] LABS: BILIRUBIN,TOTAL 0.6 mg/dL (0.2-1); TOT PROT 7.6 g/dl (6.4-8.2)
[2022-02-01 18:42] LABS: ALK PHOS 94 U/L (45-117)
[2022-02-01 18:58] LABS: ERYTHROCYTE SEDIMENTATION RATE 7 mm/hr (0-20)
[2022-02-01] MEDS ORDERED: ACETAMINOPHEN 325 MG TABLET (FP) PO ONE (19:14)
[2022-02-01] MEDS ORDERED: ACETAMINOPHEN 325 MG TABLET (FP) ONE (21:17)
[2022-02-01] MEDS ORDERED: diazePAM 5 MG TABLET PO ONE (22:11)
[2022-02-01] MEDS ORDERED: diazePAM 5 MG TABLET ONE (22:19)
== END 2022-02-01 22:23 | disposition home or self-care (01) ==
LOC: JER 16:19
DX: M54.50 Low back pain, unspecified (principal); M79.604 Pain in right leg; R53.1 Weakness; R33.9 Retention of urine, unspecified
CPT/HCPCS: 36415; 72146-TC; 72148-TC; 80053; 84703; 85025; 85651; 86140; 99285-25

== ENCOUNTER 2022-08-16 10:47 | Emergency (ER) | payer OTHER ==
[2022-08-16 10:56] VITALS: TEMP 98.1; BMI 25.8
[2022-08-16 12:21] LABS: BASO % 1.2 % (0-2.0); EOS % 2.3 % (0-4.5); HEMATOCRIT 37.3 % (32.4-45.2); HEMOGLOBIN 12.6 GM/dL (10.7-15.3); LYMPH % 36.6 % (8-40); MCHC 33.8 g/dl (32.0-36.0); MEAN CELL VOLUME 94.7 fl (80-96); MEAN PLT VOLUME 9.2 fl (7.5-11.1); MONO % 8.8 % (3.8-10.2); NEUT % 51.1 % (42.8-82.8); PLATELET COUNT 225 10^3/uL (134-434); RBC 3.94 M/mm3 (3.60-5.2); RDW 13.6 % (11.6-15.6); WHITE BLOOD COUNT 4.5 K/mm3 (4.0-10.0)
[2022-08-16 12:25] LABS: PH,URINE 5.5 (5.0-8.0); URINE APPEARANCE CLEAR; URINE BILIRUBIN NEGATIVE (NEGATIVE); URINE COLOR YELLOW; URINE GLUCOSE (UA) NEGATIVE (NEGATIVE); URINE KETONE NEGATIVE (NEGATIVE); URINE LEUK ESTERASE NEGATIVE (NEGATIVE); URINE NITRITE NEGATIVE (NEGATIVE); URINE PROTEIN NEGATIVE (NEGATIVE); URINE UROBILINOGEN 0.2 mg/dL (0.2-1.0)
[2022-08-16 12:27] LABS: HCG,QUALITATIVE URINE Positive
[2022-08-16 12:46] LABS: ALBUMIN 3.8 g/dl (3.4-5.0); BLOOD UREA NITROGEN 12.6 mg/dL (7-18)
[2022-08-16 12:49] LABS: CREATININE 0.7 mg/dL (0.55-1.3)
[2022-08-16 12:51] LABS: BILIRUBIN,TOTAL 0.5 mg/dL (0.2-1)
[2022-08-16 15:22] VITALS: BP 124/76; PULSE 84; RESP 19
== END 2022-08-16 15:22 | disposition home or self-care (01) ==
LOC: JER 10:47
DX: O20.8 Other hemorrhage in early pregnancy (principal); O26.891 Other specified pregnancy related conditions, first trimester; N83.291 Other ovarian cyst, right side; R10.84 Generalized abdominal pain; Z3A.01 Less than 8 weeks gestation of pregnancy
CPT/HCPCS: 36415; 76801-TC; 80053; 81003; 84702; 84703; 85025; 86850; 86900; 86901; 87086; 99284-25